=== PATIENT | female | born 1945 | race Caucasian/White ===

== ENCOUNTER 2017-11-10 20:43 | Emergency (ER) | payer OTHER ==
[~2017-11-10] VITALS: Ht 165.1 cm; Wt 56.9 kg
[2017-11-10] MEDS ORDERED: NAPROSYN500 MG PO (21:50)
[2017-11-10 22:08] VITALS: BP 138/95
== END 2017-11-10 22:08 | disposition home or self-care (01) ==
LOC: EME 20:43
DX: S96.911A Strain of unspecified muscle and tendon at ankle and foot level, right foot, initial encounter (principal); W18.30XA Fall on same level, unspecified, initial encounter; Y93.54 Activity, bowling; Y92.39 Other specified sports and athletic area as the place of occurrence of the external cause
CPT/HCPCS: 73630; 99281; 99284